=== PATIENT | female | born 1995 | race Caucasian/White ===

== ENCOUNTER 2017-08-29 18:47 | Emergency (ER) | payer OTHER ==
[2017-08-29 20:50] LABS: BASOPHIL % 0.7 % (0-2); PLATELET COUNT 288 x10^3mcL (130-400); RED CELL DISTRIBUTION WIDTH 14.1 % (11.5-14.5)
[2017-08-29 21:44] VITALS: BP 110/73
== END 2017-08-29 21:45 | disposition home or self-care (01) ==
LOC: ED 18:47
PROVIDERS: Emergency Medicine
DX: N39.0 Urinary tract infection, site not specified (principal); Z86.2 Personal history of diseases of the blood and blood-forming organs and certain disorders involving the immune mechanism
CPT/HCPCS: 36415; Q0162

== ENCOUNTER 2017-12-17 12:08 | Emergency (ER) | payer OTHER ==
[~2017-12-17] VITALS: Ht 157.5 cm; Wt 54.0 kg
[2017-12-17 12:44] VITALS: Ht 157.5 cm; Wt 54.0 kg
[2017-12-17 14:24] VITALS: BP 122/81
== END 2017-12-17 14:24 | disposition home or self-care (01) ==
LOC: ED 12:08
DX: N39.0 Urinary tract infection, site not specified (principal); J45.909 Unspecified asthma, uncomplicated
CPT/HCPCS: J0696

== ENCOUNTER 2019-02-02 22:17 | Emergency (ER) | payer OTHER ==
[~2019-02-02] VITALS: Ht 157.5 cm; Wt 57.2 kg
[2019-02-02 22:51] VITALS: Ht 157.5 cm; Wt 57.2 kg
[2019-02-03 00:11] VITALS: BP 122/64
== END 2019-02-03 00:11 | disposition home or self-care (01) ==
LOC: ED 22:17
DX: N12 Tubulo-interstitial nephritis, not specified as acute or chronic (principal); J45.909 Unspecified asthma, uncomplicated
CPT/HCPCS: J0696

== ENCOUNTER 2019-04-19 00:10 | Emergency (ER) | payer OTHER ==
[~2019-04-19] VITALS: Ht 157.5 cm; Wt 56.2 kg
[2019-04-19 00:13] VITALS: Ht 157.5 cm; Wt 56.2 kg
[2019-04-19 00:41] VITALS: BP 114/76
== END 2019-04-19 00:41 | disposition home or self-care (01) ==
LOC: ED 00:10
DX: N30.00 Acute cystitis without hematuria (principal); J45.909 Unspecified asthma, uncomplicated; Z98.890 Other specified postprocedural states

== ENCOUNTER 2019-07-01 20:15 | Emergency (ER) | payer OTHER ==
[~2019-07-01] VITALS: Ht 157.5 cm; Wt 57.6 kg
[2019-07-01 20:35] VITALS: Ht 157.5 cm; Wt 57.6 kg
[2019-07-01 22:16] LABS: BASOPHIL % 0.7 % (0-2); PLATELET COUNT 315 x10^3mcL (130-400); RED CELL DISTRIBUTION WIDTH 14.3 % (11.5-14.5)
[2019-07-01 22:47] LABS: CALCIUM 8.6 mg/dL (8.5-10.1); CARBON DIOXIDE 28.4 mmol/L (21-32); CHLORIDE SERUM 106 mmol/L (98-107); CREATININE SERUM 0.7 mg/dL (0.6-1.0); GFR1 > 60 mL/min; GLUCOSE SERUM 88 mg/dL (74-106); POTASSIUM SERUM 3.8 mmol/L (3.5-5.1); SODIUM SERUM 141 mmol/L (136-145)
[2019-07-01 22:52] LABS: ALBUMIN 3.9 g/dL (3.4-5.0); ALKALINE PHOSPHATASE 80 U/L (46-116); ALT/SGPT 15 U/L (14-59); AST/SGOT 8 U/L (15-37); BILIRUBIN TOTAL 0.42 mg/dL (0.20-1.00); LIPASE 111 IU/L (73-393); TOTAL PROTEIN, SERUM 7.4 g/dL (6.4-8.2)
[2019-07-02 00:01] LABS: UA SPECIFIC GRAVITY 1.025 (1.005-1.035); microscopic required? YES; urine erythrocyte 3+ (NEGATIVE)
[2019-07-02 02:29] VITALS: BP 99/61
== END 2019-07-02 02:29 | disposition home or self-care (01) ==
LOC: ED 20:15
PROVIDERS: Emergency Medicine
DX: N39.0 Urinary tract infection, site not specified (principal); D64.9 Anemia, unspecified; J45.909 Unspecified asthma, uncomplicated
CPT/HCPCS: J0696; J1885; Q9967

== ENCOUNTER 2019-08-21 12:49 | Emergency (ER) | payer OTHER ==
[~2019-08-21] VITALS: Ht 157.5 cm; Wt 56.2 kg
[2019-08-21 13:18] VITALS: Ht 157.5 cm; Wt 56.2 kg
[2019-08-21 15:59] LABS: microscopic required? NO
[2019-08-21 16:04] LABS: UA SPECIFIC GRAVITY 1.015 (1.005-1.035); urine erythrocyte NEGATIVE (NEGATIVE)
[2019-08-21 16:09] LABS: PLATELET COUNT 268 x10^3mcL (130-400); RED CELL DISTRIBUTION WIDTH 13.3 % (11.5-14.5)
[2019-08-21 16:12] LABS: CALCIUM 8.7 mg/dL (8.5-10.1); CARBON DIOXIDE 28.2 mmol/L (21-32); CHLORIDE SERUM 104 mmol/L (98-107); CREATININE SERUM 0.8 mg/dL (0.6-1.0); GFR1 > 60 mL/min; GLUCOSE SERUM 114 mg/dL (74-106); SODIUM SERUM 138 mmol/L (136-145)
[2019-08-21 16:18] LABS: ALKALINE PHOSPHATASE 72 U/L (46-116); ALT/SGPT 22 U/L (14-59); AST/SGOT 13 U/L (15-37); BILIRUBIN TOTAL 0.7 mg/dL (0.20-1.00); TOTAL PROTEIN, SERUM 7.5 g/dL (6.4-8.2)
[2019-08-21 16:38] LABS: MONOCYTE 6 % (0-7); SEGMENTED NEUTROPHILS 52 % (37-75); rbc morphology (normal/abnorm) NORMAL (NORMAL)
[2019-08-21 16:59] VITALS: BP 125/79
== END 2019-08-21 16:59 | disposition home or self-care (01) ==
LOC: ED 12:49
PROVIDERS: Emergency Medicine
DX: R42 Dizziness and giddiness (principal); R55 Syncope and collapse; J45.909 Unspecified asthma, uncomplicated; Z86.2 Personal history of diseases of the blood and blood-forming organs and certain disorders involving the immune mechanism
CPT/HCPCS: J7030

== ENCOUNTER 2020-03-22 05:23 | Emergency (ER) | payer OTHER ==
[~2020-03-22] VITALS: Ht 157.5 cm; Wt 59.0 kg
[2020-03-22 05:35] VITALS: Ht 157.5 cm; Wt 59.0 kg
[2020-03-22 07:26] VITALS: BP 111/82
== END 2020-03-22 07:26 | disposition home or self-care (01) ==
LOC: ED 05:23
DX: M43.6 Torticollis (principal); J45.909 Unspecified asthma, uncomplicated